=== PATIENT | male | born 1965 | race Caucasian/White ===

== ENCOUNTER 2020-03-12 14:50 | Emergency (ER) | payer BC ==
--- NOTE | 2020-03-12 15:06 | EDM.PDOC ---
ED HPI GENERAL MEDICAL PROBLEM - General Chief Complaint: Upper Extremity Injury/Pain Stated Complaint: RT HAND PINKY FINGER LAC Time Seen by Provider: 03/12/20 14:59 Source of Information: Reports: Patient, RN Notes Reviewed History Limitations: Reports: No Limitations - History of Present Illness INITIAL COMMENTS - FREE TEXT/NARRATIVE: Patient is a 54-year-old male who presents to the ED for the evaluation of a right hand pinky finger laceration. Patient states that around 2 PM today, he was opening a harish wire gait, and ended up cutting his pinky finger on his right hand. This is a 2 cm V-shaped laceration to the anterior surface of the fifth digit, over the PIP. Patient denies any numbness or tingling to the area, and he has full strength with flexion/extension of the digit. Patient is not sure of his last tetanus booster, but he notes that he is on Plavix. Patient denies any other sick-like symptoms, fever/chills, cough/shortness of breath, chest pain, nausea/vomiting/diarrhea. Left Finger-Little Pain Score (Numeric/FACES): 3 - Related Data Allergies Allergy/AdvReac Type Severity Reaction Status Date / Time No Known Allergies Allergy Verified 03/21/16 12:08 Home Meds: Home Meds Fish Oil/Tuckerman-3 Fatty Acids [Fish Oil 1,000 MG] 1 cap PO BID 03/21/16 [History] Lancets [Accu-Chek] 1 ea TOP DAILY 03/21/16 [History] Losartan/Hydrochlorothiazide [Losartan-HCTZ 100-12.5 MG] 1 tab PO DAILY 03/21/16 [History] Multivitamin [Daily Zach] 1 each PO BID 03/21/16 [History] Ubidecarenone [Co Q-10] 100 mg PO DAILY 03/21/16 [History] atorvaSTATin Calcium [Atorvastatin Calcium] 10 mg PO DAILY 03/21/16 [History] Cholecalciferol (Vitamin D3) [Vitamin D] 5,000 unit PO ASDIRECTED 03/12/20 [History] Chromium Amino Acid Chelate [Chromium] 400 mcg PO DAILY 03/12/20 [History] Clopidogrel Bisulfate [Plavix] 75 mg PO DAILY 03/12/20 [History] Non-Formulary Medication [NF Drug] 0 each DAILY 03/12/20 [History] sitaGLIPtin Phos/Metformin HCl [Janumet 50-1,000 MG] 1 each PO BID 03/12/20 [History] Past Medical History HEENT History: Reports: Impaired Vision Other HEENT History: reading glasses Cardiovascular History: Reports: High Cholesterol, Hypertension Musculoskeletal History: Reports: Fracture Endocrine/Metabolic History: Reports: Diabetes, Type II Review of Systems - Review of Systems Review Of Systems: Comprehensive ROS is negative, except as noted in HPI. ED EXAM, GENERAL - Physical Exam Exam: See Below Exam Limited By: No Limitations General Appearance: Alert, WD/WN, No Apparent Distress Respiratory/Chest: No Respiratory Distress, Lungs Clear, Normal Breath Sounds, No Accessory Muscle Use, Chest Non-Tender Cardiovascular: Normal Peripheral Pulses, Regular Rate, Rhythm, No Murmur Peripheral Pulses: 3+: Radial (L), Radial (R) Extremities: Normal Range of Motion, Normal Capillary Refill, Other (V-shaped laceration to anterior pinky surface, see skin assessment for detail) Neurological: Alert, Oriented, Normal Cognition, No Motor/Sensory Deficits Psychiatric: Normal Affect, Normal Mood Skin Exam: Warm, Dry, Normal Color, No Rash, Wound/Incision (2 cm V-shaped laceration to the anterior surface of the fifth digit of the right hand, patient has full flexion/extension. This is over the PIP aspect. No other wounds noted.) ED TRAUMA EXTREMITY PROCEDURES - Laceration/Wound Repair Right Middle Anterior Digit - 5th (Baby) Lac/Wound Length In cm: 2 Appearance: Superficial, Irregular (v-shaped), Clean Distal NVT: Neuro & Vascular Intact, No Tendon Injury Anesthetic Type: Local Local Anesthesia - Lidocaine (Xylocaine): 1% Plain Local Anesthetic Volume: 3cc Skin Prep: Providone-Iodine (Betadine), Saline Saline Irrigation (cc's): 250 Exploration/Debridement/Repair: Wound Explored, In a Bloodless Field, Explored to Base, No Foreign Material Found Closed With: Sutures Suture Size: 4-0 # of Sutures: 6 Suture Type: Prolene, Interrupted, Simple Sterile Dressing Applied: Nurse Tetanus Status Addressed: Yes (updated at today's visit) Complications: No Course - Vital Signs Last Recorded V/S: Last Vital Signs Temp 99.2 F 03/12/20 15:05 Pulse 67 03/12/20 15:05 Resp 20 03/12/20 15:05 BP 148/87 H 03/12/20 15:05 Pulse Ox 97 03/12/20 15:05 - Orders/Labs/Meds Orders: Active Orders 24 hr Category Date Time Status Vaccines to be Administered [RC] PER UNIT ROUTINE Care 03/12/20 15:29 Ordered Meds: Medications Discontinued Medications Generic Name Dose Route Start Last Admin Trade Name [place] PRN Reason Stop Dose Admin Diphtheria/Tetanus/Acell Pertussis 0.5 ml 03/12/20 15:29 03/12/20 15:36 Adacel IM 03/12/20 15:30 0.5 ml .ONCE ONE Administration Lidocaine HCl 10 ml 03/12/20 15:29 03/12/20 15:37 Xylocaine 1% INJECT 03/12/20 15:30 10 ml ONETIME ONE Administration Departure - Departure Time of Disposition: 15:43 Disposition: Home, Self-Care 01 Condition: Good Clinical Impression: Laceration of little finger Qualifiers: Encounter type: initial encounter Damage to nail status: without damage Foreign body presence: without foreign body Laterality: right Qualified Code(s): S61.216A - Laceration without foreign body of right little finger without damage to nail, initial encounter - Discharge Information *PRESCRIPTION DRUG MONITORING PROGRAM REVIEWED*: No *COPY OF PRESCRIPTION DRUG MONITORING REPORT IN PATIENT NAMAN: No Instructions: Sutures, Mar Yann, or Adhesive Wound Closure, [id number] Referrals: Anjelica Sevilla MD [Primary Care Provider] - Forms: ED Department Discharge Additional Instructions: You have been evaluated in the ED for your laceration. Sutures will need to stay in for 10-14 days (03/22-03/26). You may return to the ED or any clinic for removal. Please keep this area clean and dry, you may cleanse with regular soap and water. No vigorous scrubbing. Watch out for signs of infection like increased redness, swelling, pain at the laceration site, or if you should develop any fevers or chills. Please return to ED if your symptoms change or worsen. Sepsis Event Note (ED) - Focused Exam Vital Signs: Vital Signs Temp Pulse Resp BP Pulse Ox 03/12/20 15:05 99.2 F 67 20 148/87 H 97 - My Orders Last 24 Hours: My Active Orders 03/12/20 15:29 Vaccines to be Administered [RC] PER UNIT ROUTINE - Assessment/Plan Last 24 Hours: My Active Orders 03/12/20 15:29 Vaccines to be Administered [RC] PER UNIT ROUTINE
[2020-03-12 15:07] VITALS: BP 148/87; PULSE 67
[2020-03-12] MEDS ORDERED: Diphtheria,Pertussis(Acell),Tetanus Vaccine 0.5 ML Syringe IM ONE (15:29)
[2020-03-12] MEDS ORDERED: Lidocaine 1% 10 ML MDV INJECT ONE (15:29)
== END 2020-03-12 16:30 | disposition home or self-care (01) ==
LOC: JD.ED 14:50
DX: S61.216A Laceration without foreign body of right little finger without damage to nail, initial encounter (principal); I10 Essential (primary) hypertension; E11.9 Type 2 diabetes mellitus without complications; E78.00 Pure hypercholesterolemia, unspecified; Z23 Encounter for immunization; Z79.899 Other long term (current) drug therapy; Z79.02 Long term (current) use of antithrombotics/antiplatelets; Z79.84 Long term (current) use of oral hypoglycemic drugs; W26.8XXA Contact with other sharp object(s), not elsewhere classified, initial encounter
CPT/HCPCS: 12001; 90471; 90715; 99282; J2001